=== PATIENT | male | born 2000 | race Asian ===

== ENCOUNTER 2024-08-01 13:11 | Outpatient (CLI) | payer OTHER, SELFPAY ==
--- OUTSIDE RECORDS SUMMARY | 2024-08-01 13:17 | XMS_ITS | Clinical Summary ---
Author Organization [facility] Address [facility] [place] [address] Care Team Providers Care Lean Manager Name Role Phone Unavailable Primary Care Provider Unavailabl e Encounters Date Type Department Care Team Description 07/27/2024 Transcribe Orders [facility] Pre Access Team [address], [place] [id number] Donna Dickerson FNP from Last 3 Months Social History Tobacco Use Types Packs/Day Years Used Date Smoking Tobacco: Never Assessed Sex and Gender Information Value Date Recorded Sex Assigned at Not on file Legal Sex Male 5:47 PM [employer]UPATIONAL [employer] Gender Identity Not on file Sexual Orientation Not on file Plan of Treatment Health Maintenance Due Date Last Done Comments Annual Physical 2002 HPV Vaccines (1 - Male 3-dos e series) 2014 Hepatitis C 2017 DTaP, Tdap and Td Vaccines ( 1 - Tdap) 2018 Hepatitis B Vaccines (1 of 3 - 19+ 3-dose series) 2018 COVID-19 Vaccine ( - 2023-2 5 season) 2024 Influenza Adult (#1) 2024 Meningococcal B Vaccine Aged Out No l onger eligible based on patient's age to complete this topic Meningococcal Vaccine Aged Out No [place] diana eligible based on patient's age to complete this topic Pneumococcal Vaccine: Pediat rics (0 to 5 Years) and At-Risk Patients (6 to 64 Years) Aged Out No longer eligible b ased on patient's age to complete this topic RSV Immunizations Under 20 Months Aged Out No longer eligible based on patient's age to complete this topic
== END 2024-08-01 13:12 | disposition home or self-care (01) ==
LOC: ANHAUDIO 13:11
PROVIDERS: Visit Provider Otolaryngology Otolaryngology/Facial Plastic Surgery
DX: H90.2 Conductive hearing loss, unspecified (principal); H93.92 Unspecified disorder of left ear; H93.8X9 Other specified disorders of ear, unspecified ear; H73.893 Other specified disorders of tympanic membrane, bilateral; H73.92 Unspecified disorder of tympanic membrane, left ear; H69.93 Unspecified Eustachian tube disorder, bilateral
CPT/HCPCS: 92557; 92567